=== PATIENT | male | born 1985 | race Caucasian/White ===

== ENCOUNTER 2018-02-09 13:41 | Emergency (ER) | payer OTHER ==
[2018-02-09] MEDS ORDERED: LET GEL TOPICAL 1 EA SYR TP ONE (14:42)
[2018-02-09] MEDS ORDERED: IBUPROFEN 600 MG TAB PO ONE (15:04)
[2018-02-09] MEDS ORDERED: TDAP ADULT 0.5 ML INJ (BOOSTRIX) IM ONE (15:12)
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
[2018-02-09 16:43] VITALS: BP 112/65
== END 2018-02-09 16:43 | disposition home or self-care (01) ==
PROC: 0HQFXZZ Repair Right Hand Skin, External Approach (ICD-10-PCS; principal; 2018-02-09)
DX: S61.411A Laceration without foreign body of right hand, initial encounter (principal); R93.7 Abnormal findings on diagnostic imaging of other parts of musculoskeletal system; S80.01XA Contusion of right knee, initial encounter; S60.221A Contusion of right hand, initial encounter; S60.222A Contusion of left hand, initial encounter; S40.011A Contusion of right shoulder, initial encounter